=== PATIENT | female | born 1970 | race African-American/Black ===

== ENCOUNTER → 2016-12-07 | Outpatient (CLI) | payer SELFPAY ==
[~2016-12-07] MED LIST: FARXIGA10 MG PO; HYDROCHLOROTH12.5 MG PO; LISINOPRIL20 MG PO; METFORMIN PO; NOVOLOG FL100 UNIT/1 SUBQ; TRESIBA FL100 UNIT/1 SUBQ; VICTOZA0.6 MG/0.1 SUBQ; VITAMIN D250000 UNIT PO; ZESTRIL2.5 MG PO
== END | disposition home or self-care (01) ==
LOC: CBAR 14:09
DX: Z01.818 Encounter for other preprocedural examination (principal); E66.01 Morbid (severe) obesity due to excess calories
CPT/HCPCS: G0463

== ENCOUNTER → 2017-02-15 | Outpatient (CLI) | payer OTHER ==
--- NOTE | ~2017-02-15 | CR97 ---
[facility] A Service of [facility] & [facility] RADIOLOGY TEXT RESULTS PATIENT: ROE YANG LOCATION: [facility] : 72 UNIT #: [id number] AGE: [address]: Jeovanny Franz MD SEX: F ORDER DR: [id number] [facility] [address]. [place], [place] [address] [id number] O MR#: [id number] Acc #: [id number] NAME: ROE YANG : 1970 SEX: F STUDY DATE/TIME: 02/15/2017 10:33 UNIT: [facility] ROOM: STUDY DESCRIPTION: CR Esophagram Attending Physician: Jeovanny Franz M.D. Referring Physician: Jeovanny Franz M.D. Ordering Physician: Jeovanny Franz M.D. Primary Care Physician: Alissa Vides M.D. MEDICAL IMAGING REPORT This report is preliminary unless electronic signature is present EXAM Esophagram 02/15/2017 HISTORY Planned lap-band. PROCEDURE Study performed with 8 spot images and 0.4 minutes of fluoroscopy FINDINGS Esophagus is normal in course and caliber. There is no mass or ulceration or mucosal fold thickening. Peristalsis is normal. IMPRESSION Normal esophagram. Dictated by... Bay Aldana M.D. THIS IS AN ELECTRONICALLY VERIFIED REPORT Bay Aldana M.D. at 02/21/2017 5:04 PM TEV/rnr TD: 02/16/2017 01:39 JOB #: [id number] MEDICAL IMAGING REPORT Page 1 of 1 COPY
--- NOTE | ~2017-02-15 | EKG ---
PATIENT: ROE YANG UNIT #: [id number] Ventricular Rate: 98 BPM Atrial Rate: 98 BPM P-R Interval: 152 ms QRS Duration: 78 ms Q-T Interval: 356 ms QTC Calculation(Bezet): 454 ms P Moca: 43 degrees Calculated R Moca: 44 degrees Calculated T Moca: 41 degrees Diagnosis Line: Normal sinus rhythm Diagnosis Line: Normal ECG Diagnosis Line: No previous ECGs available Diagnosis Line: Confirmed by SADIE AMAYA MD ([id number]) on 02/15/2017 Diagnosis Line: 5:00:29 PM INTERPRETING MD: MONIQUE SCOTT
--- NOTE | ~2017-02-15 | CR63 ---
[facility] A Service of [facility] & [facility] RADIOLOGY TEXT RESULTS PATIENT: ROE YANG LOCATION: [facility] : 72 UNIT #: [id number] AGE: [address]: Jeovanny Franz MD SEX: F ORDER DR: [id number] [facility] [address] [place], [place] [address] [id number] O MR#: [id number] Acc #: [id number] NAME: ROE YANG : 1970 SEX: F STUDY DATE/TIME: 02/15/2017 7:57 UNIT: [facility] ROOM: STUDY DESCRIPTION: CR Chest 2 View Attending Physician: Jeovanny Franz M.D. Referring Physician: Jeovanny Franz M.D. Ordering Physician: Jeovanny Franz M.D. Primary Care Physician: Alissa Vides M.D. MEDICAL IMAGING REPORT This report is preliminary unless electronic signature is present EXAM Chest PA and lateral 02/15/2017 HISTORY Morbid obesity. Preop laparoscopic gastric banding and paraesophageal hernia repair. Benign essential hypertension and diabetes type 2. FINDINGS PA and lateral examination of the chest upright shows a good expansion of the parenchyma with a normal distribution of the pulmonary vascularity. There is no indication of congestion, effusion, infiltrate, tumor, or nodular density. The pleural reflections and diaphragmatic contours are normal. The cardiac silhouette and mediastinal anatomy is within normal limits. IMPRESSION Normal chest. Dictated by... Everardo Hermosillo M.D. THIS IS AN ELECTRONICALLY VERIFIED REPORT Everardo Hermosillo M.D. at 02/15/2017 4:52 PM BELEM/sapphire TD: 02/15/2017 12:38 JOB #: [id number] MEDICAL IMAGING REPORT Page 1 of 1 COPY
[2017-02-15 09:59] LABS: HEMATOCRIT 38.3 % (35.0-45.0); HEMOGLOBIN 12.4 gm/dL (12.0-16.0); MEAN CELL VOLUME 80.5 FL (83-96); MEAN CORPUSCULAR HEMOGLOBIN 26.1 PG (28-34); MEAN CORPUSCULAR HGB CONC 32.4 g/dL (30-36); MEAN PLATELET VOLUME 6.7 FL (6.5-11.5); RED BLOOD COUNT 4.76 X10e (3.90-5.30); RED CELL DISTRIBUTION WIDTH 14.8 % (11.0-15.5); WHITE BLOOD COUNT 7.4 X10e3 (4.0-10.5)
[2017-02-15 11:08] LABS: ALBUMIN SERUM 3.6 g/dL (3.5-5.0); BILIRUBIN,TOTAL 0.1 mg/dL (0.2-2.0); CALCIUM SERUM 9.3 mg/dL (8.4-10.2); CREATININE SERUM 0.7 mg/dL (0.6-1.4); GLOM FILT RATE Estimated 121.3 mL/min (>60); POTASSIUM 4.1 mmol/L (3.5-5.1); PROTEIN TOTAL SERUM 7.7 g/dL (6.0-8.3)
== END | disposition home or self-care (01) ==
LOC: CRAD 01-25 08:30 → CAMB 01-25 09:00 → CRAD 02-01 08:00
PROVIDERS: Surgery
DX: Z01.818 Encounter for other preprocedural examination (principal)
CPT/HCPCS: 36415; 71020; 74220; 80053; 80061; 84443; 85027; 93005

== ENCOUNTER → 2017-02-27 | Day surgery (SDC) | payer OTHER ==
--- NOTE | ~2017-02-27 | OR ---
Unit #: [id number] #: [id number] Patient: ROE YANG [id number] [address] [address] [id number] O MR#: [id number] NAME: ROE YANG ROOM: Date of Procedure: 02/27/2017 Admission Date: 02/27/2017 Surgeon: Jeovanny Franz M.D. : 1970 Attending Physician: Jeovanny Franz M.D. Primary Care Physician: Alissa Vides M.D. OPERATIVE REPORT PREOPERATIVE DIAGNOSIS Chronic obesity, body mass index of 43. POSTOPERATIVE DIAGNOSIS 1. Chronic obesity, body mass index of 43. 2. Paraesophageal hiatal hernia repair. PROCEDURES PERFORMED 1. Laparoscopic adjustable gastric band. 2. Laparoscopic paraesophageal hiatal hernia repair. BOARDING SPECIALIST Cipriano Musa M.D. ANESTHESIA General anesthesia. ESTIMATED BLOOD LOSS Minimal. IV FLUIDS 800 crystalloid. COMPLICATIONS None. INDICATIONS FOR PROCEDURE The patient is a 46-year-old, who presents with chronic morbid obesity. DESCRIPTION OF PROCEDURE The patient was taken to the operating room and placed in supine position. General anesthesia was induced. The abdomen was prepped and draped. A 3-cm incision was then made left of the midline. A 10-mm Visiport was then placed intraabdominal under direct vision. The abdomen was insufflated to 15 mmHg with CO2. The patient was then placed in a steep reversed Trendelenburg. General inspection of the abdomen revealed what appeared to be a paraesophageal hernia. This was identified with a defect at the diaphragm using anterior palpation with the instrument. We then made a small incision in the subxiphoid region. A Kacy liver retractor was then placed intraabdominal and used to retract the left lobe of the liver upward to further expose the paraesophageal hernia and GE junction. I then placed a 5-mm port in the right upper quadrant, a 10-mm Unit #: [id number] #: [id number] Patient: ROE YANG port in the left upper quadrant, and another 5-mm port in the left lower quadrant. The stomach was retracted medial and downward. Upon retracting the stomach, we took down the paraesophageal ligament, exposing the right and left carmelina at the paraesophageal hernia. Any hernia sac was reduced. We then repaired the paraesophageal hernia using interrupted #0 Ethibond sutures in a [id number] type fashion. This formed a snug repair to the anterior esophagus. We then retracted the stomach medially and further exposed the angle of His using Bovie electrocautery. The stomach was then retracted laterally. We then took down the hepatogastric ligament with Bovie electrocautery. This exposed the right carmelina. Using blunt dissection, I created a retrogastric tunnel from this point to the angle of His. The band was then placed intraabdominal through the 10-mm port site. This was then brought through the retrogastric tunnel in a pars flaccida technique. The band was then closed anteriorly to form a 20-mL to 25-mL anterior gastric pouch. The fundus was then secured to the anterior pouch to prevent movement around the stomach using two interrupted #0 Ethibond sutures. A third suture was then used as a gathering stitch from the lesser curve to the anterior stomach, gathering and imbricating the remaining fundus of the stomach. The tubing was then brought out through the midline 10-mm port site. All ports and the Kacy liver retractor were removed under direct vision with no evidence of abdominal hemorrhage. A polypropylene mesh was then secured to the posterior face of the laparoscopic band port. This was secured using #0 Ethibond suture. This was then cut to shape. The port was then connected to the tubing and placed into a subcutaneous pocket just anterior to the rectus sheath. Its position was then confirmed. All tubing was then placed intraabdominal. The wounds were then closed with interrupted 4-0 Vicryl. The patient tolerated the procedure well and was sent to the recovery room in good condition. Dictated by... Krishan Tony/santi TD: 02/27/2017 14:42 JOB #: [id number] OPERATIVE REPORT Page 1 of 1 X Jeovanny Franz MD X PROCEDURE OPERATIVE NOTE
--- NOTE | ~2017-02-27 | CR7 ---
[facility] A Service of [facility] & [facility] RADIOLOGY TEXT RESULTS PATIENT: ROE YANG LOCATION: [facility] : 72 UNIT #: [id number] AGE: [address]: Jeovanny Franz MD SEX: F ORDER DR: [id number] [facility] [address]. [place], [place] [address] [id number] O MR#: [id number] Acc #: [id number] NAME: ROE YANG : 1970 SEX: F STUDY DATE/TIME: 02/27/2017 9:31 UNIT: [facility] ROOM: STUDY DESCRIPTION: CR Abdomen Single AP View Attending Physician: Jeovanny Franz M.D. Ordering Physician: Jeovanny Franz M.D. Primary Care Physician: Alissa Vides M.D. MEDICAL IMAGING REPORT This report is preliminary unless electronic signature is present EXAM AP abdomen INDICATIONS Postop lap band placement, initial exam. No comparisons. FINDINGS There is a lap band in place. The angle with respect to the spine is approximately 71 degrees. IMPRESSION Postop lap band as described. Dictated by... Ramana Glaser M.D. THIS IS AN ELECTRONICALLY VERIFIED REPORT Ramana Glaser M.D. at 02/28/2017 9:30 AM ARS/lesley TD: 02/27/2017 10:41 JOB #: [id number] MEDICAL IMAGING REPORT Page 1 of 1 COPY
== END | disposition home or self-care (01) ==
LOC: CSUR 02-06 08:00
DX: E66.01 Morbid (severe) obesity due to excess calories (principal); K44.9 Diaphragmatic hernia without obstruction or gangrene; E11.9 Type 2 diabetes mellitus without complications; I10 Essential (primary) hypertension; Z68.41 Body mass index [BMI] 40.0-44.9, adult; Z72.4 Inappropriate diet and eating habits; Z87.01 Personal history of pneumonia (recurrent); Z88.5 Allergy status to narcotic agent; Z79.4 Long term (current) use of insulin; Z79.899 Other long term (current) drug therapy; Z98.890 Other specified postprocedural states
CPT/HCPCS: 74000; 82947; C1781; J0330; J0690; J1650; J1885; J2250; J2405; J2710; J3010